=== PATIENT | female | born 1970 | race Caucasian/White ===

== ENCOUNTER 2017-11-05 18:31 | Emergency (ER) | payer OTHER ==
--- NOTE | 2017-11-05 21:30 | ED GENERAL ADULT ---
History of Present Illness General Chief Complaint: Female Urogenital Problems Stated Complaint: ?VAGINAL INFECTION Source: patient Exam Limitations: no limitations Vital Signs & Intake/Output Vital Signs & Intake/Output Vital Signs Date Time Temp Pulse Resp B/P B/P Pulse O2 O2 Flow FiO2 Mean Ox Delivery Rate 11/05 2141 97.4 59 18 116/82 99 11/05 1852 Room Air 11/05 1836 98.4 113 18 120/77 100 Room Air Allergies Coded Allergies: hydrocodone (Intermediate, HIVES, RASH 11/05/17) Triage Note: 47 YO FEMALE TO TRIAGE FOR EVAL OF ?VAGINAL INFECTION. REPORTS SHE HAD INTERCOURSE WITH HER WHO HAD A ?CUT ON HIS PENIS. STATES SINCE THEN SHE HAS HAD ITCHINESS TO VAGINA. DENIES DISCHARGE. Triage Nurses Notes Reviewed? yes Onset: Gradual Duration: day(s): Timing: constant HPI: 47-year-old female with a history of anxiety and hypothyroid presenting with vaginal itching over the past 2-3 days. Patient states that a few days ago she had intercourse with her who had a cut on his penis at the time. The next day she developed vaginal itching. Denies fevers, nausea, vomiting, abdominal pain, vaginal pain, vaginal discharge, dysuria, hematuria. Last menstrual period was the day before she had intercourse. Her usual menstrual period last 1 day. Patient has no concerns for STDs. She is currently in a monogamous marriage. Past History Travel History Traveled to [place] past 21 day No Medical History Any Pertinent Medical History? see below for history Neurological: NONE EENT: NONE Cardiovascular: NONE Respiratory: NONE Gastrointestinal: NONE Hepatic: NONE Renal: NONE Musculoskeletal: NONE Psychiatric: anxiety Endocrine: hypothyroidism Tetanus Vaccine: 09/26/14 Surgical History Surgical History: non-contributory Psychosocial History What is your primary language Greek Tobacco Use: Never used Family History Hx Contributory? No Review of Systems Review of Systems Constitutional: Reports: no symptoms. EENTM: Reports: no symptoms. Respiratory: Reports: no symptoms. Cardiovascular: Reports: no symptoms. GI: Reports: no symptoms. Genitourinary: Reports: see HPI. Musculoskeletal: Reports: no symptoms. Skin: Reports: no symptoms. Neurological/Psychological: Reports: no symptoms. Hematologic/Endocrine: Reports: no symptoms. Immunologic/Allergic: Reports: no symptoms. All Other Systems: Reviewed and Negative Physical Exam Physical Exam General Appearance: well developed/nourished, no apparent distress, alert, awake , comfortable Comments: Gen.: Well-nourished, well-developed, no acute distress. Head: Normocephalic, atraumatic. Eyes: Normal inspection bilaterally Ears: Normal inspection bilaterally Nose: Normal inspection Neck: Normal inspection Lungs: clear to auscultation bilaterally, normnal breath sounds Heart: regular rate and rhythm Abdomen: soft and non-tender Genital exam: No genital lesions, on speculum exam there is no vaginal bleeding, no purulent discharge, trace areas of yeast that are easily scraped off the vaginal mucosa, no cervical motion tenderness, no adnexal tenderness or masses Extremities: Normal inspection Neurologic: alert and oriented x3, steady gait Skin: warm and dry Psychiatric: Normal mood and affect, no apparent delusions or hallucinations, behavior appropriate Core Measures ACS in differential dx? No CVA/TIA Diagnosis: No Sepsis Present: No Sepsis Focused Exam Completed? No Progress Differential Diagnoses I considered the following diagnoses in my evaluation of the patient: [yeast vaginitis, low concern for UTI versus cervicitis versus PID versus pyelonephritis] Plan of Care: Orders Procedure Date/time Status URINE 11/05 1834 Complete URINALYSIS 11/05 1834 Complete Laboratory Tests 11/05/171856: Urine Color YEL, Urine Clarity CLEAR, Urine pH 5.5, Ur Specific Jones >= 1.030 , Urine Protein NEG, Urine Ketones TRACE H, Urine Nitrite NEG, Urine Bilirubin NEG, Urine Urobilinogen 0.2, Ur Leukocyte Esterase NEG, Ur Microscopic SEDIMENT EXAMINED, Urine RBC 1-3, Urine WBC 3-5 H, Ur Epithelial Cells FEW, Urine Crystals RARE [place], Urine Bacteria FEW H, Urine Mucus MOD H, Urine Hemoglobin SMALL H, Urine Glucose NEG, Urine Test NEGATIVE UA was not suspicious for infection. Urine negative. We will treat with single dose of fluconazole for yeast infection based on exam. Instructed to follow-up with her SCHEDULE CLERK for reevaluation. While in the emergency department patient had mild anxiety attack with shortness of breath that she states felt similar to her prior anxiety attacks. Lungs were clear and vital signs remained normal. She was given a small dose of Ativan with good effect. Instructed to follow-up with her PMD for further evaluation of her anxiety. Given strict return precautions. Initial ED EKG: none Departure Departure Disposition: HOME OR SELF CARE Condition: Stable Clinical Impression Primary Impression: Yeast vaginitis Referrals: Db Turcios MD (PCP/Family) Additional Instructions: Follow-up with your SCHEDULE CLERK for reevaluation of your yeast infection. Follow-up with your primary care provider for reevaluation of your anxiety. Return to the emergency department for any new or worsening symptoms. Departure Forms: Customer Survey General Discharge Information Critical Care Note Critical Care Note Critical Care Time: non-applicable
[2017-11-05 21:41] VITALS: BP 116/82
== END 2017-11-05 21:41 ==
LOC: ERH 18:31
DX: B37.3 Candidiasis of vulva and vagina (principal)
CPT/HCPCS: 81001; 81025